=== PATIENT | male | born 1945 | race Caucasian/White ===

== ENCOUNTER → 2016-08-30 | Outpatient (CLI) | payer BC ==
[~2016-08-30] MED LIST: ASCO1CAP3 PO; ASPI81CH2 PO; B-CO1CAP5 PO; CARB1DRO22 OPB; CHOL1CAP57 PO; GLC/500 PO; LISI-725 PO; MULT-506 PO; OMEG10007 PO; OMEP20TA PO; SIMV20TA2 PO
== END | disposition home or self-care (01) ==
LOC: C.PATHSPEC 16:52
PROVIDERS: ATTEND Dermatology
DX: D22.9 Melanocytic nevi, unspecified (principal)

== ENCOUNTER → 2016-08-30 | Outpatient (CLI) | payer BC ==
--- NOTE | 2016-08-30 12:30 | DIAGNOSTIC IMAGING REPORT ---
RIGHT SHOULDER MIN 2 VIEWS ROUTINE CLINICAL HISTORY: Right shoulder pain COMPARISON: None. DISCUSSION: No fractures or dislocations are visualized. There are no erosive or destructive changes. A sclerotic density within the scapular neck likely represents a bone island IMPRESSION: No fractures dislocations or periarticular calcifications are visualized Electronically signed by: Del Villela M.D. 08/30/2016 12:29 PM Dictated Date/Time: 08/30/2016 12:28 PM
== END | disposition home or self-care (01) ==
LOC: C.RAD1850 12:00
PROVIDERS: ATTEND Dermatology
DX: M79.1 Myalgia (principal); D22.9 Melanocytic nevi, unspecified

== ENCOUNTER → 2017-05-22 | Outpatient (CLI) | payer BC | END | disposition home or self-care (01) | LOC: C.PATHSPEC 12:50 | PROVIDERS: ATTEND Dermatology | DX: D48.5 Neoplasm of uncertain behavior of skin (principal); L57.0 Actinic keratosis ==

== ENCOUNTER → 2017-08-19 | Outpatient (CLI) | payer BC ==
[~2017-08-19] MED LIST changes: +OPTIRAY 320 IV PRN
--- NOTE | 2017-08-19 16:15 | DIAGNOSTIC IMAGING REPORT ---
CHEST, ABDOMEN, PELVIS CT WITH CONTRAST CT DOSE: 1175.08 mGy.cm HISTORY: CLL. TECHNIQUE: Multiaxial CT images of the chest abdomen and pelvis were performed following the intravenous administration of contrast. Oral contrast was also administered for the abdomen and pelvis CT. A dose lowering technique was utilized adhering to the principles of ALARA. COMPARISON: Chest abdomen pelvis CT 05/24/2014. FINDINGS: The central airways are patent. No pleural effusions. No pneumothorax. No focal lung consolidations. No suspicious pulmonary nodules. Normal caliber thoracic aorta with no evidence for dissection. The central pulmonary arteries are patent. The heart is normal in size. No similar change in the mild lymphadenopathy within the base of the neck and supraclavicular regions. Mild axillary, mediastinal, and left hilar lymphadenopathy is also not significant changed. Dominant right axillary lymph node continues to measure 1.5 x 1.1 cm. Dominant lymph node within the left neck base continues to measure 1.4 x 1.4 cm. Mildly enlarged submandibular and submental lymph nodes are also unchanged. Stable 1.7 cm sclerotic focus within the left pubic bone. No suspicious lytic or blastic osseous lesions identified. Slight progression of the bilateral external iliac lymphadenopathy. Dominant right external iliac lymph node measures 3.0 x 1.4 cm, previous measuring 2.7 x 1.0 cm. Periportal lymph nodes are not significant changed. Tiny fat-containing umbilical hernia. Subcentimeter retroperitoneal lymph nodes remain stable and do not meet CT criteria for pathologic involvement. No hepatic or splenic masses. A few prominent perisplenic lymph nodes remain stable. The adrenal glands are unremarkable. No hydronephrosis. Small bilateral peripelvic renal cysts are again noted. Normal bladder. No bowel wall thickening or obstruction. Normal appendix. IMPRESSION: 1. No significant change in the mild lymphadenopathy within the neck and chest as described above. 2. Slight progression of the lymphadenopathy within the bilateral iliac chains compared to the prior study. The prominent periportal lymph nodes remain stable. Electronically signed by: Tom Fierro M.D. 08/19/2017 4:14 PM Dictated Date/Time: 08/19/2017 4:01 PM
== END | disposition home or self-care (01) ==
LOC: C.CTS 15:16
PROVIDERS: ATTEND Nurse Practitioner Family
DX: C83.00 Small cell B-cell lymphoma, unspecified site (principal)